=== PATIENT | female | born 1975 | race American Indian/Alaskan Native ===

== ENCOUNTER 2019-01-15 12:02 | Outpatient (CLI) | payer OTHER ==
--- NOTE | 2019-01-15 14:01 | XRay Report ---
CERVICAL SPINE, 5 views: History: Cervical radiculopathy. Normal bone mineralization. Normal height and alignment of the vertebral bodies. Minimal degenerative disc disease is identified at C3-4 and C4-5. The remaining levels are within normal limits. The posterior elements and facet joints are unremarkable. The left neural foramen are widely patent throughout. There is suggestion of mild to moderate narrowing of the right C3-4 neural foramen. No evidence for fracture or bone lesion. IMPRESSION: Minimal cervical spondylosis. Question mild to moderate right neural foraminal narrowing at C3-4.
--- NOTE | 2019-01-15 14:02 | XRay Report ---
Left shoulder: There is good alignment of the shoulder joint as well as the acromioclavicular joint. There is a small calcification projecting below the distal third of the clavicle possibly within the ligament. There is some fragmentation involving the anterior left first rib. The findings are not otherwise remarkable. Impression: No acute findings noted. The small focal calcification however could relate to a tendinitis.
== END 2019-01-15 12:03 | disposition home or self-care (01) ==
LOC: XRAY 12:02
PROVIDERS: ATTEND Internal Medicine
DX: M47.812 Spondylosis without myelopathy or radiculopathy, cervical region (principal); M50.31 Other cervical disc degeneration, high cervical region; M25.512 Pain in left shoulder
CPT/HCPCS: 72050